=== PATIENT | male | born 1970 | race Caucasian/White ===

== ENCOUNTER 2016-03-09 05:36 | Emergency (ER) | payer SELFPAY ==
[~2016-03-09] VITALS: Ht 177.8 cm; Wt 79.5 kg
[2016-03-09 05:38] VITALS: BP 136/83; PULSE 90; RESP 16; TEMP 98.5; O2SAT 98
[2016-03-09] MEDS ORDERED: LIDOCAINE 1%/EPINEPHrine 1:100,000 SOLN 20 ML VIAL ONE (06:04)
--- NOTE | 2016-03-09 06:07 | PD ---
HPI Chief Complaint: Laceration/Skin Injury Time Seen by Provider: 06:00 Travel History International Travel<30 days: No Contact w/Intl Traveler<30days: No Traveled to known affect area: No History of Present Illness HPI 46-year-old male presents for evaluation of facial lacerations. Yesterday evening he tripped and fell in his kitchen. He sustained lacerations to the forehead, eyebrows. Denies loss of consciousness, headache, dizziness, confusion, amnesia, nausea, vomiting, visual changes. Denies any neck or back pain or injury to the extremities. His last tetanus vaccination was 6 years ago. He is not on any blood thinning medications. No other complaints. [facility] Past Medical History Diminished Hearing: No Musculoskeletal: Yes Immunizations Current: Yes Tetanus Vaccination: Unknown Social History Alcohol Use: Yes ([facility]) Tobacco Use: No Substance Use: No Allergies-Medications (Allergen,Severity, Reaction): Coded Allergies: No Known Allergies (Unverified , 03/09/16) Reported Meds & Prescriptions Reported Meds & Active Scripts Active No Active Prescriptions or Reported Medications Review of Systems Except as stated in HPI: all other systems reviewed are Neg Physical Exam Narrative GENERAL: Well-developed well-nourished male in no acute distress SKIN: Warm and dry. There is a 1 cm horizontal laceration to the left forehead , 2 cm laceration to the right eyebrow extending onto the eyelid, 1 cm laceration to the left eyebrow, another 0.5 cm laceration to the left eyebrow. HEAD: Skin as noted above. Normocephalic. EYES: Pupils equal and round. No scleral icterus. No injection or drainage. ENT: No nasal bleeding or discharge. Mucous membranes pink and moist. NECK: Trachea midline. No JVD. MUSCULOSKELETAL: No obvious deformities. No clubbing. No cyanosis. No edema. NEUROLOGICAL: Awake and alert. No obvious cranial nerve deficits. Motor grossly within normal limits. Normal speech. Data Data Last Documented VS Vital Signs Date Time Temp Pulse Resp B/P Pulse Ox O2 Delivery O2 Flow Rate FiO2 03/09/16 06:21 18 03/09/16 05:38 98.5 90 136/83 98 Orders Lidocai-Epi 1%-1:100,000 Inj (Xylocaine- (03/09/16 06:15) Tetanus/Diphtheria Tox Adult (Tetanus/Di (1/7/17 06:15) Lidocai-Epi 1%-1:100,000 Inj (Xylocaine- (03/09/16 06:04) MDM Medical Decision Making Medical Screen Exam Complete: Yes Emergency Medical Condition: Yes Medical Record Reviewed: Yes Differential Diagnosis Cutaneous lacerations, skull fracture, intracranial hemorrhage Narrative Course 46-year-old male presents with multiple facial lacerations after a mechanical fall last night. He has no neurologic symptoms at all. The laceration will be repaired with sutures, he verbally consents, please see complaint procedural note. Tetanus status updated. He is stable for discharge. Procedures Procedure Narrative LACERATION LOCATION: Right eyebrow LENGTH: 2 cm NUMBER OF STITCHES/LOREN: 9 REPAIR: The area of the laceration was prepped with Betadine and sterilely draped. The laceration was infiltrated with 1% lidocaine with epinephrine]. The wound was copiously irrigated and explored without evidence of foreign body , tendon injury or neurovascular injury. The wound was closed using 6-0 proline simple interrupted. This was a single layer repair. A sterile dressing was applied. The patient was advised to keep the dressing clean and dry. Patient tolerated the procedure well. LACERATION LOCATION: Left eyebrow LENGTH:1 cm NUMBER OF STITCHES/LOREN: 3 REPAIR: The area of the laceration was prepped with Betadine and sterilely draped. The laceration was infiltrated with 1% lidocaine with epinephrine]. The wound was copiously irrigated and explored without evidence of foreign body , tendon injury or neurovascular injury. The wound was closed using 6-0 proline simple interrupted. This was a single layer repair. A sterile dressing was applied. The patient was advised to keep the dressing clean and dry. Patient tolerated the procedure well. LACERATION LOCATION: Left eyebrow LENGTH: 0.5 cm NUMBER OF STITCHES/LOREN: 2 REPAIR: The area of the laceration was prepped with Betadine and sterilely draped. The laceration was infiltrated with 1% lidocaine with epinephrine]. The wound was copiously irrigated and explored without evidence of foreign body , tendon injury or neurovascular injury. The wound was closed using 6-0 proline simple interrupted. This was a single layer repair. A sterile dressing was applied. The patient was advised to keep the dressing clean and dry. Patient tolerated the procedure well. LACERATION LOCATION: Left forehead LENGTH:1 cm NUMBER OF STITCHES/LOREN: 3 REPAIR: The area of the laceration was prepped with Betadine and sterilely draped. The laceration was infiltrated with 1% lidocaine with epinephrine. The wound was copiously irrigated and explored without evidence of foreign body , tendon injury or neurovascular injury. The wound was closed using 6-0 proline simple interrupted. This was a single layer repair. A sterile dressing was applied. The patient was advised to keep the dressing clean and dry. Patient tolerated the procedure well. Diagnosis Primary Impression: Facial laceration Qualified Code: S01.81XA - Facial laceration, initial encounter Additional Instructions: Wash the wounds gently with soap and water and apply antibiotic cream daily. Return in 5-6 days for suture removal. Med/Other Pt SpecificInfo: Wound Care Scripts No Active Prescriptions or Reported Meds Disposition: 01 DISCHARGE HOME Condition: Stable Oskar Perry Mar 09, 2016 06:07
[2016-03-09] MEDS ORDERED: LIDOCAINE 1%/EPINEPHrine 1:100,000 SOLN 20 ML VIAL INFIL ONE (06:15)
[2016-03-09] MEDS ORDERED: TETANUS/DIPHTHERIA TOXOID ADULT 0.5 ML VIAL IM ONE (06:15)
== END 2016-03-09 07:09 | disposition home or self-care (01) ==
LOC: NEPB 05:36
DX: S01.81XA Laceration without foreign body of other part of head, initial encounter (principal); S01.111A Laceration without foreign body of right eyelid and periocular area, initial encounter; S01.112A Laceration without foreign body of left eyelid and periocular area, initial encounter; Z23 Encounter for immunization; W18.09XA Striking against other object with subsequent fall, initial encounter; Y92.000 Kitchen of unspecified non-institutional (private) residence as the place of occurrence of the external cause; Y99.8 Other external cause status
CPT/HCPCS: 12013; 90471; 90714